=== PATIENT | male | born 1970 | race Caucasian/White ===

== ENCOUNTER 2020-05-29 18:06 | Emergency (ER) | payer SELFPAY ==
[~2020-05-29] VITALS: Ht 180.3 cm; Wt 67.6 kg
[~2020-05-29 18:06] MED LIST: ALPR0.25 PO; SLEEPING PILL
[2020-05-29] MEDS ORDERED: PANTOPRAZOLE IV 40 MG VIAL. IVP ONE (18:30)
[2020-05-29 18:36] LABS: BASO # 0.1 x10^3/uL (0.0-0.2); BASO % 1 % (0-3); EOS # 0.3 x10^3/uL (0.0-0.7); EOS % 5 % (0-3); HEMOGLOBIN 7.4 g/dL (13.0-17.5); LYMPH # 2.5 x10^3/uL (1.0-4.8); LYMPH % 37 % (24-48); MEAN CORPUSCULAR HEMOGLOBIN 27 pg (25-35); MEAN CORPUSCULAR HGB CONC 32 g/dL (31-37); MEAN CORPUSCULAR VOLUME 85 fL (79-100); MONO # 0.7 x10^3/uL (0.0-1.1); MONO % 10 % (0-9); NEUT # 3.2 x10^3uL (1.8-7.7); NEUT % 48 % (31-73); PLATELET COUNT 127 x10^3/uL (140-400); RED BLOOD COUNT 2.71 x10^6/uL (4.30-5.70); RED CELL DISTRIBUTION WIDTH 20.9 % (11.5-14.5); WHITE BLOOD COUNT 6.8 x10^3/uL (4.0-11.0)
[2020-05-29] MEDS ORDERED: IV NORMAL SALINE 1,000ML 1,000 ML IV ONE ×2 (18:45→21:30)
[2020-05-29 18:51] LABS: ALBUMIN/GLOBULIN RATIO 0.6 (1.0-1.7); CALCIUM 8.4 mg/dL (8.5-10.1); CREATININE 1.5 mg/dL (0.7-1.3); GFR 49.7; MAGNESIUM 2.4 mg/dL (1.8-2.4); TOTAL BILIRUBIN 0.4 mg/dL (0.2-1.0); TOTAL PROTEIN 7.9 g/dL (6.4-8.2)
[2020-05-29 18:52] LABS: POTASSIUM 2.8 mmol/L (3.5-5.1)
[2020-05-29 19:00] LABS: ANISOCYTOSIS MOD; POLYCHROMASIA PRESENT
[2020-05-29 19:01] LABS: PLT ESTIMATE DECREASED (ADEQUATE)
[2020-05-29 19:03] LABS: MICROCYTOSIS SLIGHT
[2020-05-29] MEDS ORDERED: POTASSIUM CL 40MEQ IN 0.9%NACL 1,000 ML IV ONE (19:15)
[2020-05-29] MEDS ORDERED: IOHEXOL 300 MG/ML 75 ML VIAL. IV ONE (19:15)
[2020-05-29] MEDS ORDERED: CONTRAST GIVEN. MC PRN (19:30)
--- NOTE | 2020-05-29 19:30 | PHYS DOC ---
Past History Past Medical History: Anemia, GERD Additional Past Medical Histor: ulcer Past Surgical History: Other Alcohol Use: Heavy Drug Use: Other General Adult EDM: Chief Complaint: MECHANICAL FALL HPI: HPI: 49-year-old male past medical history significant for peptic ulcer disease, hiatal hernia, anemia, gerd, cardiac murmur and alcohol abuse, presents to the ED with complaints of dizziness and falling for the past 2 days. Patient states he started "puking blood" yesterday, and he feels very weak. Wang no primary care physician. States he was admitted to [facility] 2 months ago and was told he had 2 stomach ulcers (s/p egd) along with a hiatal hernia, required a blood transfusion at that time. Takes daily iron. Reports his tetanus is up-to-date. Unsure if he has cirrhosis or esophageal varices. On exam complains of bilateral lower abdominal pain and right low back pain. Repeat exam c/o right shoulder and right midaxillary mid-rib pain (&7/8)-initially no pain with palpation. Review of systems: Denies associated fever, chills, cough, sore throat, chest pain or pressure, dyspnea, rash, dysuria, neck stiffness, headache, blurry vision, jaw malocclusion, dysuria, hematuria. Review of Systems: Review of Systems: Constitutional: Denies fever or chills Eyes: Denies change in visual acuity HENT: Denies nasal congestion or sore throat Respiratory: Denies cough or shortness of breath Cardiovascular: Denies chest pain or edema GI: Denies abdominal pain, nausea, vomiting, bloody stools or diarrhea : Denies dysuria Musculoskeletal: Denies back pain or joint pain Integument: Denies rash Neurologic: Denies headache, focal weakness or sensory changes Endocrine: Denies polyuria or polydipsia Lymphatic: Denies swollen glands Psychiatric: Denies depression or anxiety Heart Score: Risk Factors: Risk Factors: DM, Current or recent (<one month) smoker, HTN, HLP, family history of CAD, obesity. Risk Scores: Score 0 - 3: 2.5% MACE over next 6 weeks - Discharge Home Score 4 - 6: 20.3% MACE over next 6 weeks - Admit for Clinical Observation Score 7 - 10: 72.7% MACE over next 6 weeks - Early Invasive Strategies Current Medications: Current Meds: Current Medications Medications (Trade) Dose Ordered Sig/Paulette Start Time Stop Time Status Last Admin Dose Admin Info (Do NOT chart on this entry -- for MONITORING) 1 each PRN DAILY PRN 05/29/20 19:30 05/31/20 19:29 Iohexol (Omnipaque 300 Mg/ml) 75 ml 1X ONCE 05/29/20 19:15 05/29/20 19:16 DC Pantoprazole Sodium (Protonix Vial) 80 mg 1X ONCE 05/29/20 18:30 05/29/20 18:31 DC Potassium Chloride/Sodium Chloride 1,000 ml @ 75 mls/hr 1X ONCE 05/29/20 19:15 05/30/20 08:34 Sodium Chloride 1,000 ml @ 1,000 mls/hr 1X ONCE 05/29/20 18:45 05/29/20 19:44 05/29/20 18:45 1,000 MLS/HR Allergies: Allergies: Allergies Coded Allergies Type Severity Reaction Last Updated Verified No Known Drug Allergies 01/18/15 No Physical Exam: PE: Constitutional: Unkept appearance, no acute distress, non-toxic appearance, alcohol on breath HENT: nasal bridge laceration, gross blood both nares, no septal hematoma, right periorbital abrasions, dried blood in mouth, oropharynx dry, no oral exudates, Eyes: PERRLA, EOMI, conjunctiva normal, no discharge. [] Neck: Normal range of motion, no midline tenderness, supple, no stridor. [] Cardiovascular:Heart rate regular rhythm, no murmur [] Lungs & Thorax: Bilateral breath sounds clear to auscultation [] Abdomen: Bowel sounds normal, soft, no reproducible tenderness, no masses, no pulsatile masses. [] Skin: Warm, dry, no erythema, no rash. [] Back: No tenderness, no CVA tenderness. [] Extremities: No tenderness, no cyanosis, no clubbing, ROM intact, no edema, abrasion to right shoulder Neurologic: Alert and oriented X 3, normal motor function, normal sensory function, no focal deficits noted. [] Psychologic: Affect normal, judgement normal, mood normal. [] Current Patient Data: Labs: Laboratory Tests Test 05/29/20 18:11 05/29/20 18:18 Glucose (Fingerstick) 112 mg/dL (70-99) H White Blood Count 6.8 x10^3/uL (4.0-11.0) Red Blood Count 2.71 x10^6/uL (4.30-5.70) L Hemoglobin 7.4 g/dL (13.0-17.5) L Hematocrit 23.0 % (39.0-53.0) L Mean Corpuscular Volume 85 fL (79-100) Mean Corpuscular Hemoglobin 27 pg (25-35) Mean Corpuscular Hemoglobin Concent 32 g/dL (31-37) Red Cell Distribution Width 20.9 % (11.5-14.5) H Platelet Count 127 x10^3/uL (140-400) L Neutrophils (%) (Auto) 48 % (31-73) Lymphocytes (%) (Auto) 37 % (24-48) Monocytes (%) (Auto) 10 % (0-9) H Eosinophils (%) (Auto) 5 % (0-3) H Basophils (%) (Auto) 1 % (0-3) Neutrophils # (Auto) 3.2 x10^3uL (1.8-7.7) Lymphocytes # (Auto) 2.5 x10^3/uL (1.0-4.8) Monocytes # (Auto) 0.7 x10^3/uL (0.0-1.1) Eosinophils # (Auto) 0.3 x10^3/uL (0.0-0.7) Basophils # (Auto) 0.1 x10^3/uL (0.0-0.2) Platelet Estimate Decreased (ADEQUATE) Large Platelets Present Polychromasia Present Anisocytosis Mod Microcytosis Slight Prothrombin Time 10.7 SEC (9.4-11.4) Prothrombin Time INR 1.0 (0.9-1.1) Sodium Level 138 mmol/L (136-145) Potassium Level 2.8 mmol/L (3.5-5.1) *L Chloride Level 98 mmol/L (98-107) Carbon Dioxide Level 27 mmol/L (21-32) Anion Gap 13 (6-14) Blood Urea Nitrogen 25 mg/dL (8-26) Creatinine 1.5 mg/dL (0.7-1.3) H Estimated GFR (Cockcroft-Gault) 49.7 BUN/Creatinine Ratio 17 (6-20) Glucose Level 103 mg/dL (70-99) H Calcium Level 8.4 mg/dL (8.5-10.1) L Magnesium Level 2.4 mg/dL (1.8-2.4) Total Bilirubin 0.4 mg/dL (0.2-1.0) Aspartate Amino Transferase (AST) 33 U/L (15-37) Alanine Aminotransferase (ALT) 16 U/L (16-63) Alkaline Phosphatase 122 U/L (46-116) H Total Protein 7.9 g/dL (6.4-8.2) Albumin 3.0 g/dL (3.4-5.0) L Albumin/Globulin Ratio 0.6 (1.0-1.7) L Lipase 211 U/L (73-393) Ethyl Alcohol Level 185 mg/dL (0-10) H Vital Signs: Vital Signs Date Time Temp Pulse Resp B/P (MAP) Pulse Ox O2 Delivery O2 Flow Rate FiO2 05/29/20 18:06 87 18 99/52 (68) 96 Room Air EKG: EKG: Normal sinus rhythm 86 bpm, no axis deviation, QTC 516, no T wave inversions, no ST elevations or ST depressions Radiology/Procedures: Radiology/Procedures: IMAGING REPORT Signed PATIENT: LEE LOUIS ACCOUNT: [id number] : 1970 LOCATION: ER AGE: 49 SEX: M EXAM STATUS: REG ER ORD. PHYSICIAN: MADISON VARGAS DO REASON: fall PROCEDURE: CHEST AP ONLY CHEST AP ONLY History: Reason: fall / Spl. Instructions: / History: . Pain. Comparison: January 18, 2015 Findings: No consolidation or pleural effusion. Unchanged heart size. No pneumothorax. Mild linear left basilar atelectasis or scarring. Rightward curvature of the thoracic spine. Irregularity of the left distal clavicle. Chronic left-sided rib fracture. Impression: 1. No acute cardiopulmonary process. 2. Irregularity of the left distal clavicle, may relate to prior trauma. Recommend correlation with point tenderness to evaluate acuity. Dedicated imaging can also further evaluate. Electronically signed by: Jeremy Rodgers DO (05/29/2020 8:02 PM) [facility] DICTATED AND SIGNED BY: JEREMY RODGERS DO DATE: 05/29/202001 CC: PCPANNE; MADISON VARGAS DO; MINDI BERMAN DO ~ IMAGING REPORT Signed PATIENT: LEE LOUIS ACCOUNT: [id number] : 1970 LOCATION: ER AGE: 49 SEX: M EXAM STATUS: REG ER ORD. PHYSICIAN: MADISON VARGAS DO REASON: fall PROCEDURE: CT HEAD AND CERVICAL SPINE WO CT HEAD AND CERVICAL SPINE WO History: Reason: fall / Spl. Instructions: / History: . Pain. Comparison: January 18, 2015 Technique: Noncontrast CT imaging was performed of the head and cervical spine. Coronal and sagittal reconstructions were performed. Exposure: One or more of the following individualized dose reduction techniques were utilized for this examination: 1. Automated exposure control 2. Adjustment of the mA and/or kV according to patient size 3. Use of iterative reconstruction technique. Findings: Head CT: No intracranial hemorrhage. No mass effect. No hydrocephalus. Moderate brain parenchymal volume loss for age. Mild foci of decreased attenuation within the hemispheric white matter, most often due to chronic microvascular ischemia. Imaged orbits are unremarkable. Imaged paranasal sinuses are clear. Bilateral mastoid effusions. No acute calvarial fracture. Cervical spine CT: Motion degraded evaluation. Reversal normal cervical lordosis. No definite fracture. Chronic T1 mild anterior compression deformity. Mild multilevel degenerative disc changes most prominent C4-C5 and C5-C6. No high-grade canal or neuroforaminal narrowing. Pulmonary emphysema. Impression: Head CT: 1. No acute intracranial abnormality. 2. Moderate brain parenchymal loss for age. Cervical spine CT: 1. Motion degraded examination. No definite acute fracture or subluxation of the cervical spine. If persistent clinical concern, recommend follow-up. Electronically signed by: Jeremy Rodgers DO (05/29/2020 8:10 PM) [facility] DICTATED AND SIGNED BY: JEREMY RODGERS DO DATE: 05/29/202009 CC: ANNE HART; MADISON VARGAS DO; MINDI BERMAN DO ~ IMAGING REPORT Signed PATIENT: LEE LOUIS ACCOUNT: [id number] : 1970 LOCATION: ER AGE: 49 SEX: M EXAM STATUS: REG ER ORD. PHYSICIAN: MINDI BERMAN DO REASON: lower abd pain and right lbp, OMNI 300, 60ml PROCEDURE: CT ABD PELV W/ IV CONTRST ONLY Exam: CT of abdomen and pelvis with contrast INDICATION: Lower abdominal pain and right lower back pain TECHNIQUE: Sequential axial images through the abdomen and pelvis obtained following the administration of 60 mL of Omni 300 IV contrast. Sagittal and coronal reformatted images were reconstructed from the axial data and reviewed. Comparisons: 01/18/2015 FINDINGS: Heart size is normal. No pericardial effusion. Strandy opacities at dependent portion lungs likely representing atelectasis. No pleural effusion. Liver, spleen, gallbladder and adrenals are unremarkable. Mild fat stranding surrounding the pancreatic head. No pancreatic ductal dilatation. No perinephric inflammation or hydronephrosis. No renal or ureteral calculi are identified. Bladder is partially distended and not well evaluated. Prostate is not enlarged. Large and small bowel are unremarkable. Appendix is normal. No free abdominal air or fluid. No obstruction. Abdominal aorta has a normal course and caliber. Abdominal vasculature is patent. No enlarged abdominal lymph nodes are identified. No suspicious osseous lesions or acute fractures. IMPRESSION: Mild fat stranding surrounding the pancreatic head may relate to mild pancreatitis. Correlate with lipase. Exposure: One or more of the following in the visualized dose reduction techniques were utilized for this examination: 1. Automated exposure control 2. Adjustment of the MA and/or KV according to patient size 3. Use of iterative of reconstructive technique Electronically signed by: Олег Dickens MD (05/29/2020 8:09 PM) [id number] DICTATED AND SIGNED BY: ОЛЕГ DICKENS MD DATE: 05/29/202008 CC: PCP,NO; MINDI BERMAN DO ~ IMAGING REPORT Signed PATIENT: LEE LOUIS ACCOUNT: [id number] : 1970 LOCATION: ER AGE: 49 SEX: M EXAM STATUS: REG ER ORD. PHYSICIAN: MINDI BERMAN DO REASON: FALL PROCEDURE: SHOULDER 2+V RIGHT RIBS RIGHT, SHOULDER 2+V RIGHT History: Reason: RIGHT AXILLARY RIB PAIN / Spl. Instructions: / History: Technique: 4 views of the right ribs and 3 views of the right shoulder. Comparison: None. Findings: Several chronic right rib fractures. No acute displaced rib fractures. Normal alignment of the right glenohumeral and acromioclavicular joints. No fracture. Rightward curvature of the thoracic spine. Impression: 1. No acute osseous abnormality. Electronically signed by: Jeremy Rodgers DO (05/29/2020 9:51 PM) [facility] DICTATED AND SIGNED BY: JEREMY RODGERS DO DATE: 05/29/202150 CC: PCP,ANNE; MINDI BERMAN DO ~ Impressions: Concern for hematemesis/upper GI bleed (ddx-lee ann delcid?, no free air on cxr) with microcytic anemia, acute kidney injury, in the setting of falls/facial trauma, in an intoxicated male. Reports last hematemesis was 4 AM this morning, no active hematemesis in ED. Patient started on IV fluids and PPI bolus/infusion. CT imaging concerning for possible pancreatitis, lipase is within normal limits. Patient also has hypokalemia, replacement started in the ED. Lactic acid of 3.2, patient afebrile with a white count of 6.8. Patient agrees with plan for transfer [facility] for possible GI consultation if needed/pts' presentation worsens. Life threatening process considered. Pt stablized and agrees with plan for transfer. Differential includes aortic dissection, aortic aneurysm, acute coronary syndrome, surgical abdomen (appendicitis, cholecystitis, ischemic bowel, strangulated hernia, etc), bowel obstruction or volvulus, bladder outlet ob struction, inflammatory bowel disease, peptic ulcer disease, pancreatitis, esophageal varices, sepsis, diverticular disease, ureterolithiasis, nephrolithiasis, Critical Care: Authorized and Performed by: Mindi Berman DO Total critical care time: approximately 45 minutes Due to a high probability of clinically significant, life threatening deterioration, the patient required my highest level of preparedness to intervene emergently and I personally spent this critical care time directly and personally managing the patient. This critical care time included obtaining a history; examining the patient; pulse oximetry; ventilator management if necessary; ordering and review of studies; arranging urgent treatment with development of a management plan; evaluation of patient's response to treatment; frequent reassessment; discussion with patient/family; and, discussions with other providers. This critical care time was performed to assess and manage the high probability of imminent, life-threatening deterioration that could result in multi-organ failure. It was exclusive of separately billable procedures and treating other patients and teaching time. Please see MDM section and the rest of the note for further information on patient assessment and treatment. Course & Med Decision Making: Course & Med Decision Making Pertinent Labs and Imaging studies reviewed. (See chart for details) [] Dragon Disclaimer: Dragon Disclaimer: This electronic medical record was generated, in whole or in part, using a voice recognition dictation system. Departure Departure: Impression: Primary Impression: UGIB (upper gastrointestinal bleed) Additional Impressions: Alcohol intoxication Hypokalemia Fall Abrasion of face JODY (acute kidney injury) Microcytic anemia Disposition: ADMITTED INPATIENT Admitting Physician: Other (Dr. Morfin, [facility]) Condition: GUARDED Referrals: PCP,NO (PCP) Justification of Admission: Justification of Admission: Justification of Admission Dx: Yes Comments: hematemesis, upper gi bleed MINDI BERMAN DO May 29, 2020 19:30
--- NOTE | 2020-05-29 20:05 | RAD ---
CHEST AP ONLY History: Reason: fall / Spl. Instructions: / History: . Pain. Comparison: January 18, 2015 Findings: No consolidation or pleural effusion. Unchanged heart size. No pneumothorax. Mild linear left basilar atelectasis or scarring. Rightward curvature of the thoracic spine. Irregularity of the left distal clavicle. Chronic left-sided rib fracture. Impression: 1. No acute cardiopulmonary process. 2. Irregularity of the left distal clavicle, may relate to prior trauma. Recommend correlation with point tenderness to evaluate acuity. Dedicated imaging can also further evaluate. Electronically signed by: Jeremy Rodgers DO (05/29/2020 8:02 PM) [facility]
--- NOTE | 2020-05-29 20:12 | RAD ---
Exam: CT of abdomen and pelvis with contrast INDICATION: Lower abdominal pain and right lower back pain TECHNIQUE: Sequential axial images through the abdomen and pelvis obtained following the administration of 60 mL of Omni 300 IV contrast. Sagittal and coronal reformatted images were reconstructed from the axial data and reviewed. Comparisons: 01/18/2015 FINDINGS: Heart size is normal. No pericardial effusion. Strandy opacities at dependent portion lungs likely representing atelectasis. No pleural effusion. Liver, spleen, gallbladder and adrenals are unremarkable. Mild fat stranding surrounding the pancreatic head. No pancreatic ductal dilatation. No perinephric inflammation or hydronephrosis. No renal or ureteral calculi are identified. Bladder is partially distended and not well evaluated. Prostate is not enlarged. Large and small bowel are unremarkable. Appendix is normal. No free abdominal air or fluid. No obstruction. Abdominal aorta has a normal course and caliber. Abdominal vasculature is patent. No enlarged abdominal lymph nodes are identified. No suspicious osseous lesions or acute fractures. IMPRESSION: Mild fat stranding surrounding the pancreatic head may relate to mild pancreatitis. Correlate with lipase. Exposure: One or more of the following in the visualized dose reduction techniques were utilized for this examination: 1. Automated exposure control 2. Adjustment of the MA and/or KV according to patient size 3. Use of iterative of reconstructive technique Electronically signed by: Олег Santos MD (05/29/2020 8:09 PM) [id number]
--- NOTE | 2020-05-29 20:12 | RAD ---
CT HEAD AND CERVICAL SPINE WO History: Reason: fall / Spl. Instructions: / History: . Pain. Comparison: January 18, 2015 Technique: Noncontrast CT imaging was performed of the head and cervical spine. Coronal and sagittal reconstructions were performed. Exposure: One or more of the following individualized dose reduction techniques were utilized for this examination: 1. Automated exposure control 2. Adjustment of the mA and/or kV according to patient size 3. Use of iterative reconstruction technique. Findings: Head CT: No intracranial hemorrhage. No mass effect. No hydrocephalus. Moderate brain parenchymal volume loss for age. Mild foci of decreased attenuation within the hemispheric white matter, most often due to chronic microvascular ischemia. Imaged orbits are unremarkable. Imaged paranasal sinuses are clear. Bilateral mastoid effusions. No acute calvarial fracture. Cervical spine CT: Motion degraded evaluation. Reversal normal cervical lordosis. No definite fracture. Chronic T1 mild anterior compression deformity. Mild multilevel degenerative disc changes most prominent C4-C5 and C5-C6. No high-grade canal or neuroforaminal narrowing. Pulmonary emphysema. Impression: Head CT: 1. No acute intracranial abnormality. 2. Moderate brain parenchymal loss for age. Cervical spine CT: 1. Motion degraded examination. No definite acute fracture or subluxation of the cervical spine. If persistent clinical concern, recommend follow-up. Electronically signed by: Jeremy Rodgers DO (05/29/2020 8:10 PM) [facility]
--- NOTE | 2020-05-29 20:55 | EKG ---
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
[2020-05-29] MEDS ORDERED: PANTOPRAZOLE IV 80 MG in IV NORMAL SALINE 100ML 100 ML IV SCH (21:30)
[2020-05-29] MEDS ORDERED: PANTOPRAZOLE IV 40 MG VIAL. ONE (21:49)
[2020-05-29] MEDS ORDERED: IV NORMAL SALINE 100ML 100 ML ONE (21:50)
--- NOTE | 2020-05-29 21:54 | RAD ---
RIBS RIGHT, SHOULDER 2+V RIGHT History: Reason: RIGHT AXILLARY RIB PAIN / Spl. Instructions: / History: Technique: 4 views of the right ribs and 3 views of the right shoulder. Comparison: None. Findings: Several chronic right rib fractures. No acute displaced rib fractures. Normal alignment of the right glenohumeral and acromioclavicular joints. No fracture. Rightward curvature of the thoracic spine. Impression: 1. No acute osseous abnormality. Electronically signed by: Jeremy Rodgers DO (05/29/2020 9:51 PM) [facility]
[2020-05-29] MEDS ORDERED: MORPHINE SULFATE 4 MG/ML DISP.SYRIN. IV ONE (22:00)
[2020-05-30] VITALS: BP 132/73
== END 2020-05-30 00:21 | disposition other institution (70) ==
LOC: ER 18:06
DX: S01.21XA Laceration without foreign body of nose, initial encounter (principal); S40.211D Abrasion of right shoulder, subsequent encounter; K92.2 Gastrointestinal hemorrhage, unspecified; F10.229 Alcohol dependence with intoxication, unspecified; E87.6 Hypokalemia; N17.9 Acute kidney failure, unspecified; D50.9 Iron deficiency anemia, unspecified; K21.9 Gastro-esophageal reflux disease without esophagitis; Z86.2 Personal history of diseases of the blood and blood-forming organs and certain disorders involving the immune mechanism; Z87.11 Personal history of peptic ulcer disease; Y90.6 Blood alcohol level of 120-199 mg/100 ml; W18.39XA Other fall on same level, initial encounter; Y93.89 Activity, other specified; Y92.89 Other specified places as the place of occurrence of the external cause; Y99.8 Other external cause status
CPT/HCPCS: 36415; 70450; 71045; 71100; 72125; 73030; 74177; 80053; 82947; 83605; 83690; 83735; 85025; 85610; 86850; 86900; 86901; 93005; 96361; 96365; 96366; 96368; 96375; 99291; C9113; G0480; J2270; J3010; J7030; Q9967

== ENCOUNTER 2020-08-03 16:47 | Emergency (ER) | payer SELFPAY ==
[~2020-08-03] VITALS: Ht 180.3 cm; Wt 72.7 kg
--- NOTE | 2020-08-03 17:13 | PHYS DOC ---
Past History Past Medical History: Anemia, Anxiety, Bipolar, Depression, GERD Additional Past Medical Histor: ulcer (LEE SOLANO DO) Past Surgical History: No Surgical History (LEE SOLANO DO) Smoking: Cigarettes Alcohol Use: Heavy Drug Use: None (LEE SOLANO DO) General Adult EDM: Chief Complaint: SUICIDAL IDEATION HPI: HPI: Patient is a 49-year-old male who presents to the emergency department with suicidal ideation. He states that he "has nothing to live for", and states that he has multiple plans to hurt himself including knives, rope, jumping off a bridge. States he has attempted to hurt himself in the past, and recently was discharged after a 3-week stay at an inpatient behavioral health clinic at [facility] He denies any hallucinations, or drug use. Reports he drank a "few beers today". States that if he were discharged home, he would try to kill himself. He says that he wants to be admitted to a inpatient behavioral health unit in order to seek treatment. He is also complaining of left ankle pain and lower back pain that resulted after he fell down a few steps today. Denies head trauma. Also complains of a left-sided migraine. (LEE SOLANO DO) Review of Systems: Review of Systems: Constitutional: Denies fever or chills Eyes: Denies redness or eye pain HENT: Denies nasal congestion or sore throat Respiratory: Denies cough or shortness of breath Cardiovascular: Denies chest pain or palpitations GI: Denies abdominal pain, nausea, or vomiting : Denies dysuria or hematuria Musculoskeletal: Reports right sided back pain and right ankle pain Integument: Denies rash or skin lesions Neurologic: Reports right sided migraine headache, denies focal weakness or sensory changes Complete systems were reviewed and found to be within normal limits, except as documented in this note. (LEE SOLANO DO) Allergies: Allergies: Allergies Coded Allergies Type Severity Reaction Last Updated Verified No Known Drug Allergies 01/18/15 No (LEE SOLANO DO) Physical Exam: PE: Constitutional: Well developed, well nourished, no acute distress, non-toxic appearance HENT: Normocephalic, atraumatic, head nontender to palpation Eyes: PERRL, EOMI, conjunctiva normal, no discharge Neck: Normal range of motion, no midline tenderness, supple Lungs & Thorax: No respiratory distress, equal chest rise and fall Abdomen: Soft, no tenderness Skin: Warm, dry, no erythema, no rash Back: No tenderness, no CVA tenderness Extremities: Left ankle tenderness around the forefoot, mild swelling and ecchymosis noted on medial aspect of ankle, Range of motion limited due to pain Neurologic: Alert and oriented X 3, no hallucinations, normal motor function, normal sensory function, no focal deficits noted Psychologic: Flattened affect, depressed mood and suicidal ideation (LEE SOLANO DO) EKG: EKG: [] (LEE SOLANO DO) Radiology/Procedures: Radiology/Procedures: PROCEDURE: ANKLE LEFT 3V ANKLE LEFT 3V History: Reason: FALL TODAY, PAIN / Spl. Instructions: / History: Technique: 3 views left ankle. Comparison: None. Findings: Deformity of the talus and calcaneus with increased sclerosis and irregularity. Ankle degenerative changes. No definite acute fracture. Ankle soft tissue swelling. Impression: 1. No definite acute osseous abnormality. If persistent clinical concern, CT or MRI can better evaluate. 2. Deformity of the talus and calcaneus with irregularity and increased sclerosis. Findings may relate to Charcot arthropathy. Electronically signed by: Jeremy Rodgers DO (08/03/2020 5:54 PM) [facility] (LEE SOLANO DO) Course & Med Decision Making: Course & Med Decision Making Pertinent Labs and Imaging studies reviewed. (See chart for details) Patient is brought to the emergency department via EMS for suicidal ideation. He has a history of anxiety, depression, bipolar disorder and prior suicidal ideation requiring inpatient psychiatric admission. He states that he has a plan to hurt himself that includes knives, rope, and/or jumping off a bridge. He states that he wants to seek treatment in the form of an inpatient behavioral health facility. X-ray of left ankle to evaluate for acute fracture. XR with degenerative changes. Labs obtained and partially pending. 1800- sign out given to Dr. Cloud for further evaluation and final disposition. Discussed current findings and plan with patient, who acknowledges understanding and agreement. (LEE SOLANO DO) Course & Med Decision Making Screened and deemed appropriate for inpatient, pending placement (ANNA CLOUD MD) Dragon Disclaimer: Dragon Disclaimer: This electronic medical record was generated, in whole or in part, using a voice recognition dictation system. (LEE SOLANO DO) Departure Departure: Impression: Primary Impression: Suicidal ideation Additional Impression: Ankle pain, left Qualified Codes: M25.572 - Pain in left ankle and joints of left foot Referrals: PCP,NO (PCP) LEE SOLANO DO Aug 03, 2020 17:13 ANNA CLOUD MD Aug 03, 2020 22:31
[2020-08-03] MEDS ORDERED: IBUPROFEN 600 MG TABLET. PO ONE (17:30)
[2020-08-03 17:50] LABS: BASO # 0.2 x10^3/uL (0.0-0.2); BASO % 2 % (0-3); EOS # 0.6 x10^3/uL (0.0-0.7); EOS % 6 % (0-3); HEMATOCRIT 25.6 % (39.0-53.0); HEMOGLOBIN 8.3 g/dL (13.0-17.5); LYMPH # 3.7 x10^3/uL (1.0-4.8); LYMPH % 37 % (24-48); MEAN CORPUSCULAR HEMOGLOBIN 27 pg (25-35); MEAN CORPUSCULAR HGB CONC 32 g/dL (31-37); MEAN CORPUSCULAR VOLUME 85 fL (79-100); MONO # 0.8 x10^3/uL (0.0-1.1); MONO % 8 % (0-9); NEUT # 4.6 x10^3uL (1.8-7.7); NEUT % 47 % (31-73); PLATELET COUNT 490 x10^3/uL (140-400); RED BLOOD COUNT 3.02 x10^6/uL (4.30-5.70); RED CELL DISTRIBUTION WIDTH 22.3 % (11.5-14.5); WHITE BLOOD COUNT 9.9 x10^3/uL (4.0-11.0)
--- NOTE | 2020-08-03 17:57 | RAD ---
ANKLE LEFT 3V History: Reason: FALL TODAY, PAIN / Spl. Instructions: / History: Technique: 3 views left ankle. Comparison: None. Findings: Deformity of the talus and calcaneus with increased sclerosis and irregularity. Ankle degenerative changes. No definite acute fracture. Ankle soft tissue swelling. Impression: 1. No definite acute osseous abnormality. If persistent clinical concern, CT or MRI can better evaluate. 2. Deformity of the talus and calcaneus with irregularity and increased sclerosis. Findings may relate to Charcot arthropathy. Electronically signed by: Jeremy Rodgers DO (08/03/2020 5:54 PM) [facility]
[2020-08-03 18:04] LABS: ALBUMIN 3.2 g/dL (3.4-5.0); ALBUMIN/GLOBULIN RATIO 0.7 (1.0-1.7); CALCIUM 8.7 mg/dL (8.5-10.1); CREATININE 1.1 mg/dL (0.7-1.3); GFR 71.1; POTASSIUM 3.7 mmol/L (3.5-5.1); TOTAL BILIRUBIN 0.3 mg/dL (0.2-1.0); TOTAL PROTEIN 7.9 g/dL (6.4-8.2)
[2020-08-03 18:08] LABS: ETHANOL 203 mg/dL (0-10); SALIC 3.1 mg/dL (2.8-20.0)
[2020-08-03 18:09] LABS: ACETAMIN < 2.0 mcg/mL (10-30)
[2020-08-03] MEDS ORDERED: ACETAMINOPHEN 500 MG TABLET PO ONE (18:30)
[2020-08-03 18:40] LABS: BARBITURATES NEG (NEG); BENZODIAZEPINES NEG (NEG); CANNABINOIDS NEG (NEG); COCAINE NEG (NEG); METHADONE NEG (NEG); OPIATES NEG (NEG); PHENCYCLIDINE NEG (NEG)
[2020-08-03 18:44] LABS: AMPHETAMINE/METHAMPHETAMINE NEG (NEG)
[2020-08-03 18:47] LABS: BILIRUBIN,URINE NEG (NEG); CLARITY,URINE CLEAR; COLOR,URINE YELLOW; GLUCOSE,URINE NEG (NEG); NITRITE,URINE NEG (NEG); RBC,URINE 0 /HPF (0-2); UROBILINOGEN,URINE 0.2 mg/dL (0.2 mg/dL)
[2020-08-03 18:48] LABS: BACTERIA,URINE 0 /HPF (0-FEW); WBC,URINE RARE /HPF (0-4)
[2020-08-03] MEDS ORDERED: traMADol 50 MG TABLET PO ONE (20:45)
--- NOTE | 2020-08-04 06:43 | EKG ---
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
[2020-08-04] MEDS ORDERED: traMADol 50 MG TABLET ONE (09:08)
[2020-08-04] MEDS ORDERED: traMADol 50 MG TABLET PO ONE ×2 (09:15→15:30)
[2020-08-04 14:46] VITALS: BP 144/84
== END 2020-08-04 15:30 ==
LOC: ER 16:47
DX: R45.851 Suicidal ideations (principal); M25.572 Pain in left ankle and joints of left foot; M54.5 Low back pain; K21.9 Gastro-esophageal reflux disease without esophagitis; F41.9 Anxiety disorder, unspecified; F31.9 Bipolar disorder, unspecified; F17.210 Nicotine dependence, cigarettes, uncomplicated; F10.20 Alcohol dependence, uncomplicated; G43.909 Migraine, unspecified, not intractable, without status migrainosus; Z20.828 Contact with and (suspected) exposure to other viral communicable diseases; Z86.2 Personal history of diseases of the blood and blood-forming organs and certain disorders involving the immune mechanism; Y90.7 Blood alcohol level of 200-239 mg/100 ml
CPT/HCPCS: 36415; 73610; 80053; 80307; 80329; 81001; 83735; 85025; 87426; 93005; 99285; C9803; G0480; U0003

== ENCOUNTER 2020-08-28 16:36 | Emergency (ER) | payer SELFPAY ==
[~2020-08-28] VITALS: Ht 180.3 cm; Wt 70.0 kg
[2020-08-28] MEDS ORDERED: IV NORMAL SALINE 1,000ML 1,000 ML IV ONE (16:45)
[2020-08-28] MEDS ORDERED: ONDANSETRON PF 4 MG/2 ML VIAL. IVP ONE (16:45)
--- NOTE | 2020-08-28 17:14 | PHYS DOC ---
Past History Past Medical History: Anemia, Anxiety, Bipolar, Depression, GERD Additional Past Medical Histor: ulcer (SHAWANDA NICHOLAS DO) Past Medical History: Anxiety, Bipolar, Depression, GERD, Schizophrenia (DERIAN MCGRAW MD) Past Surgical History: No Surgical History (SHAWANDA NICHOLAS DO) Smoking: Cigarettes Alcohol Use: Heavy Drug Use: None (SHAWANDA NICHOLAS DO) Smoking: Cigarettes Alcohol Use: Heavy (DERIAN MCGRAW MD) General Adult EDM: Chief Complaint: MULTIPLE COMPLAINTS HPI: HPI: 49-year-old male presents via EMS with 2 complaints. He has had vomiting and diarrhea for a month and he is feeling suicidal. He states that he is vomiting nearly every day and having diarrhea for the past month. He states that he cannot keep any liquids or solids down. He tells me try to drink a beer earlier today and vomited it back up. He does not describe any specific abdominal pain. He tells me that he is depressed and tired of living. He has been thinking about suicide. He has had more than one specific plan. He thought about jumping off a bridge and he thought about using a gun. He denies fever or chills. He is supposed to be on psychiatric medications but does not think he is able to keep them down because of his vomiting. (SHAWANDA NICHOLAS DO) Review of Systems: Review of Systems: Constitutional: Denies fever or chills Eyes: Denies change in visual acuity HENT: Denies nasal congestion or sore throat Respiratory: Denies cough or shortness of breath Cardiovascular: Denies chest pain or edema GI: Nausea, vomiting, diarrhea. : Denies dysuria Musculoskeletal: Back pain, chronic at baseline. Integument: Denies rash Neurologic: Denies headache, focal weakness or sensory changes Endocrine: Denies polyuria or polydipsia Lymphatic: Denies swollen glands Psychiatric: Denies depression or anxiety (SHAWANDA NICHOLAS DO) Current Medications: Current Meds: Current Medications Medications (Trade) Dose Ordered Sig/Paulette Start Time Stop Time Status Last Admin Dose Admin Ondansetron HCl (Zofran) 4 mg 1X ONCE 08/28/20 16:45 08/28/20 16:46 DC Sodium Chloride 1,000 ml @ 1,000 mls/hr 1X ONCE 08/28/20 16:45 08/28/20 17:44 (SHAWANDA NICHOLAS DO) Allergies: Allergies: Allergies Coded Allergies Type Severity Reaction Last Updated Verified No Known Drug Allergies 01/18/15 No (SHAWANDA NICHOLAS DO) Physical Exam: PE: Constitutional: Well developed, well nourished, no acute distress, non-toxic appearance. [] HENT: Normocephalic, atraumatic, bilateral external ears normal, oropharynx moist, no oral exudates, nose normal. [] Eyes: PERRLA, EOMI, conjunctiva normal, no discharge. [] Neck: Normal range of motion, no tenderness, supple, no stridor. [] Cardiovascular: Heart rate regular rhythm, no murmur [] Lungs & Thorax: Bilateral breath sounds clear to auscultation [] Abdomen: Bowel sounds present, soft, no tenderness, no masses, no pulsatile masses. [] Skin: Warm, dry, no erythema, no rash. [] Back: No tenderness, no CVA tenderness. [] Extremities: No tenderness, no cyanosis, no clubbing, ROM intact, no edema. [] Neurologic: Alert and oriented X 3, normal motor function, normal sensory function, no focal deficits noted. [] Psychologic: Affect normal, judgement normal, mood depressed. [] (SHAWANDA NICHOLAS DO) Current Patient Data: Vital Signs: Vital Signs Date Time Temp Pulse Resp B/P (MAP) Pulse Ox O2 Delivery O2 Flow Rate FiO2 08/28/20 16:36 98.2 97 20 158/95 (116) 95 Room Air (SHAWANDA NICHOLAS DO) EKG: EKG: [] (SHAWANDA NICHOLAS DO) EKG: My interpretation EKG shows sinus rhythm at 86 bpm. No acute morphology. (DERIAN MCGRAW MD) Radiology/Procedures: Radiology/Procedures: [] (SHAWANDA NICHOLAS DO) Radiology/Procedures: [address] [address] IMAGING REPORT Signed PATIENT: LEE LOUIS ACCOUNT: [id number] : 1970 LOCATION: ER AGE: 49 SEX: M EXAM STATUS: REG ER ORD. PHYSICIAN: DERIAN MCGRAW MD REASON: abdomen pain, OMNI 300, 75ml & OMNI 240, 30ml PROCEDURE: CT ABD PELV W/ORAL&IV CONTRAST Exam: CT of abdomen and pelvis with contrast INDICATION: Abdominal pain TECHNIQUE: Sequential axial images through the abdomen and pelvis obtained following the administration of 75 mL of Omni 300 IV contrast. Sagittal and coronal reformatted images were reconstructed from the axial data and reviewed. Comparisons: None FINDINGS: Heart size is normal. No pericardial effusion. Visualized lung bases are clear. No pleural effusion. Mild diffuse hepatic steatosis. Gallbladder, spleen, pancreas and adrenals are unremarkable. Kidneys demonstrate symmetric enhancement. No perinephric inflammation or hydronephrosis. No renal or ureteral calculi are identified. Bladder is decompressed not well evaluated. Prostate is not enlarged. Large and small bowel are unremarkable. Appendix is nonidentified. No free intra-abdominal air or fluid. No obstruction. Abdominal aorta has a normal course and caliber. Abdominal vasculature is patent. No enlarged intra-abdominal lymph nodes are identified. No suspicious osseous lesions or acute fractures. IMPRESSION: No acute process identified within the abdomen or pelvis. Exposure: One or more of the following in the visualized dose reduction techniques were utilized for this examination: 1. Automated exposure control 2. Adjustment of the MA and/or KV according to patient size 3. Use of iterative of reconstructive technique Electronically signed by: Олег Dickens MD (08/28/2020 9:21 PM) [id number] DICTATED AND SIGNED BY: ОЛЕГ DICKENS MD DATE: 08/28/202120 CC: DERIAN MCGRAW MD; PCP,NO ~ [address] [address] IMAGING REPORT Signed PATIENT: LEE LOUIS ACCOUNT: [id number] : 1970 LOCATION: ER AGE: 49 SEX: M EXAM STATUS: REG ER ORD. PHYSICIAN: SHAWANDA NICHOLAS DO REASON: fecal incontinance PROCEDURE: KUB KUB History: Reason: fecal incontinance / Spl. Instructions: / History: Technique: Supine views of the abdomen. Comparison: CT May 29, 2020 Findings: Mildly dilated air-filled loops of small bowel within the left mid abdomen. Air and stool scattered throughout the imaged colon. Mild colonic stool burden distally. Leftward curvature of the lumbar spine with multilevel spondylosis. Imaged lung bases are unremarkable. Left proximal femur internal fixation. Impression: 1. Mildly dilated air-filled loops of small bowel within the left mid abdomen, may represent ileus or enteritis. Recommend follow-up to exclude developing obstruction. Alternatively, CT can further evaluate. Electronically signed by: Jeremy Martin DO (08/28/2020 5:38 PM) [facility] DICTATED AND SIGNED BY: JEREMY MARTIN DO DATE: 08/28/20 [id number] CC: SHAWANDA NICHOLAS DO; PCP,NO ~ (DERIAN MCGRAW MD) Heart Score: Risk Factors: Risk Factors: DM, Current or recent (<one month) smoker, HTN, HLP, family history of CAD, obesity. Risk Scores: Score 0 - 3: 2.5% MACE over next 6 weeks - Discharge Home Score 4 - 6: 20.3% MACE over next 6 weeks - Admit for Clinical Observation Score 7 - 10: 72.7% MACE over next 6 weeks - Early Invasive Strategies (SHAWANDA NICHOLAS DO) Course & Med Decision Making: Course & Med Decision Making Pertinent Labs and Imaging studies reviewed. (See chart for details) The patient's work-up is pending. I am signing him out to Dr. Mcgraw at 1800. [] (SHAWANDA NICHOLAS DO) Course & Med Decision Making See Dr. Nicholas chart for details. Pt. asleep entire shift until Psych screen at 0130 hrs. ( Pt. stated he was to sick to do the screen) See Psych assessment. Advised have pt.re-screened at Shift change. Pt. Went back to sleep once Tele.Psych signed off. Pt. Still asleep at 0530 hrs. Has not had a stool, or vomited since last time attempt to complete the psych.eval. Re-attempt of Tele. Psych to complete an assessment. 05:30 Patient apparently at [facility], -and given prescriptions on August 09 for Fluoxetine 20 mg x 3 daily Trazodone 100 mg at HS daily Gabapentin [address] 40 mg 1 bid Olanzapine 10 mg at HS [id number] qid prn Folic Acid 1 mg daily Request for records sent to [facility]. Impression: 1. Complaints of Suicide Ideation and Depression 2. Complaints of Abdomen pain, Nausea, Vomiting and Diarrhea- ( No episodes in previous 12 hrs) 3. Alcohol Abuse 249- recheck 142 4. Anemia Hgb 9.8 5. Mild elevation Alk Phos. 158 6. History of Bipolar 7. History of Schizoaffective disorder 8. History of GERD Tele. psych advised need of rapid COVID, to allow placement. 0600 hrs. (DERIAN MCGRAW MD) Dragon Disclaimer: Dragon Disclaimer: This electronic medical record was generated, in whole or in part, using a voice recognition dictation system. (SHAWANDA NICHOLAS DO) Departure Departure: Referrals: PCP,NO (PCP) SHAWANDA NICHOLAS DO Aug 28, 2020 17:14 DERIAN MCGRAW MD Aug 28, 2020 19:04
[2020-08-28 17:41] LABS: CALCIUM 9.1 mg/dL (8.5-10.1); CREATININE 1.1 mg/dL (0.7-1.3); GFR 71.1; POTASSIUM 3.4 mmol/L (3.5-5.1)
--- NOTE | 2020-08-28 17:41 | RAD ---
KUB History: Reason: fecal incontinance / Spl. Instructions: / History: Technique: Supine views of the abdomen. Comparison: CT May 29, 2020 Findings: Mildly dilated air-filled loops of small bowel within the left mid abdomen. Air and stool scattered throughout the imaged colon. Mild colonic stool burden distally. Leftward curvature of the lumbar spine with multilevel spondylosis. Imaged lung bases are unremarkable. Left proximal femur internal fixation. Impression: 1. Mildly dilated air-filled loops of small bowel within the left mid abdomen, may represent ileus or enteritis. Recommend follow-up to exclude developing obstruction. Alternatively, CT can further evaluate. Electronically signed by: Jeremy Rodgers DO (08/28/2020 5:38 PM) [facility]
[2020-08-28 17:46] LABS: ALBUMIN 3.6 g/dL (3.4-5.0); ALBUMIN/GLOBULIN RATIO 0.7 (1.0-1.7); TOTAL BILIRUBIN 0.3 mg/dL (0.2-1.0); TOTAL PROTEIN 9.1 g/dL (6.4-8.2)
[2020-08-28 17:49] LABS: BASO # 0.1 x10^3/uL (0.0-0.2); BASO % 1 % (0-3); EOS # 0.2 x10^3/uL (0.0-0.7); EOS % 2 % (0-3); HEMATOCRIT 31.1 % (39.0-53.0); HEMOGLOBIN 9.8 g/dL (13.0-17.5); LYMPH % 59 % (24-48); MEAN CORPUSCULAR HEMOGLOBIN 25 pg (25-35); MEAN CORPUSCULAR HGB CONC 32 g/dL (31-37); MEAN CORPUSCULAR VOLUME 80 fL (79-100); MONO # 0.6 x10^3/uL (0.0-1.1); MONO % 6 % (0-9); NEUT # 3.3 x10^3uL (1.8-7.7); NEUT % 32 % (31-73); PLATELET COUNT 278 x10^3/uL (140-400); RED BLOOD COUNT 3.87 x10^6/uL (4.30-5.70); RED CELL DISTRIBUTION WIDTH 21.7 % (11.5-14.5); WHITE BLOOD COUNT 10.2 x10^3/uL (4.0-11.0)
[2020-08-28 18:09] LABS: % LYMPHS 45 % (24-48); % MONOS 8 % (0-10); % SEGS 43 % (35-66)
[2020-08-28 18:10] LABS: % EOS 4 % (0-5); PLT ESTIMATE ADEQUATE (ADEQUATE)
[2020-08-28 18:11] LABS: ANISOCYTOSIS MOD; PLATELET CLUMP PRESENT
[2020-08-28] MEDS ORDERED: IOHEXOL 300 MG/ML 75 ML VIAL. IV ONE (19:45)
[2020-08-28] MEDS ORDERED: CONTRAST GIVEN. MC PRN (19:45)
[2020-08-28] MEDS ORDERED: IOHEXOL 240 MG/ML 50ML VIAL. PO ONE (19:45)
[2020-08-28] MEDS ORDERED: MORPHINE SULFATE 10 MG/ML SYRINGE. SQ ONE (20:15)
[2020-08-28 20:31] LABS: BARBITURATES NEG (NEG); BENZODIAZEPINES NEG (NEG); CANNABINOIDS NEG (NEG); COCAINE NEG (NEG); METHADONE NEG (NEG); OPIATES NEG (NEG); PHENCYCLIDINE NEG (NEG)
[2020-08-28 20:35] LABS: AMPHETAMINE/METHAMPHETAMINE NEG (NEG)
[2020-08-28 20:47] LABS: BILIRUBIN,URINE NEG (NEG); CLARITY,URINE CLEAR; COLOR,URINE YELLOW; GLUCOSE,URINE NEG (NEG)
[2020-08-28 20:48] LABS: BACTERIA,URINE 0 /HPF (0-FEW); NITRITE,URINE NEG (NEG); RBC,URINE 0 /HPF (0-2); SQUAMOUS EPITHELIAL CELL,UR OCC /LPF; WBC,URINE 0 /HPF (0-4)
--- NOTE | 2020-08-28 21:24 | RAD ---
Exam: CT of abdomen and pelvis with contrast INDICATION: Abdominal pain TECHNIQUE: Sequential axial images through the abdomen and pelvis obtained following the administration of 75 mL of Omni 300 IV contrast. Sagittal and coronal reformatted images were reconstructed from the axial data and reviewed. Comparisons: None FINDINGS: Heart size is normal. No pericardial effusion. Visualized lung bases are clear. No pleural effusion. Mild diffuse hepatic steatosis. Gallbladder, spleen, pancreas and adrenals are unremarkable. Kidneys demonstrate symmetric enhancement. No perinephric inflammation or hydronephrosis. No renal or ureteral calculi are identified. Bladder is decompressed not well evaluated. Prostate is not enlarged. Large and small bowel are unremarkable. Appendix is nonidentified. No free intra-abdominal air or fluid. No obstruction. Abdominal aorta has a normal course and caliber. Abdominal vasculature is patent. No enlarged intra-abdominal lymph nodes are identified. No suspicious osseous lesions or acute fractures. IMPRESSION: No acute process identified within the abdomen or pelvis. Exposure: One or more of the following in the visualized dose reduction techniques were utilized for this examination: 1. Automated exposure control 2. Adjustment of the MA and/or KV according to patient size 3. Use of iterative of reconstructive technique Electronically signed by: Олег Santos MD (08/28/2020 9:21 PM) [id number]
[2020-08-28] MEDS ORDERED: THIAMINE 200 MG/2 ML VIAL. IV ONE (21:48)
[2020-08-28] MEDS ORDERED: MVI, ADULT NO.4 WITH VIT K 10 ML VIAL IV ONE (21:48)
[2020-08-28] MEDS ORDERED: MVI, ADULT NO.4 WITH VIT K 10 ML, THIAMINE INJ 100 MG in IV RINGERS SOLUTION,LACTATED 1... IV ONE (22:00)
[2020-08-29 05:53] VITALS: BP 153/79
[2020-08-29 11:40] LABS: INFLUENZA A PATIENT NEGATIVE (NEGATIVE); INFLUENZA B PATIENT NEGATIVE (NEGATIVE)
== END 2020-08-29 16:43 | disposition home or self-care (01) ==
LOC: ER 16:36
DX: R45.851 Suicidal ideations (principal); R11.2 Nausea with vomiting, unspecified; R19.7 Diarrhea, unspecified; R10.9 Unspecified abdominal pain; F10.20 Alcohol dependence, uncomplicated; D64.9 Anemia, unspecified; R79.89 Other specified abnormal findings of blood chemistry; F31.9 Bipolar disorder, unspecified; F20.9 Schizophrenia, unspecified; K21.9 Gastro-esophageal reflux disease without esophagitis; F41.9 Anxiety disorder, unspecified; F17.210 Nicotine dependence, cigarettes, uncomplicated; Z20.828 Contact with and (suspected) exposure to other viral communicable diseases; Y90.8 Blood alcohol level of 240 mg/100 ml or more
CPT/HCPCS: 36415; 74018; 74177; 80053; 80307; 81001; 85007; 85025; 87070; 87426; 87804; 87880; 96361; 96365; 96372; 96375; 99285; G0480; J2270; J2405; J7030; J7120; Q9966; Q9967; U0003; C9803

== ENCOUNTER 2020-08-30 16:56 | Emergency (ER) | payer SELFPAY ==
[~2020-08-30] VITALS: Ht 180.3 cm; Wt 70.0 kg
[2020-08-30 20:18] LABS: BASO # 0.1 x10^3/uL (0.0-0.2); BASO % 1 % (0-3); EOS # 0.4 x10^3/uL (0.0-0.7); EOS % 5 % (0-3); HEMATOCRIT 29.2 % (39.0-53.0); HEMOGLOBIN 9.2 g/dL (13.0-17.5); LYMPH # 3.2 x10^3/uL (1.0-4.8); LYMPH % 41 % (24-48); MEAN CORPUSCULAR HEMOGLOBIN 25 pg (25-35); MEAN CORPUSCULAR HGB CONC 32 g/dL (31-37); MEAN CORPUSCULAR VOLUME 80 fL (79-100); MONO # 0.5 x10^3/uL (0.0-1.1); MONO % 7 % (0-9); NEUT # 3.5 x10^3uL (1.8-7.7); NEUT % 46 % (31-73); PLATELET COUNT 163 x10^3/uL (140-400); RED BLOOD COUNT 3.65 x10^6/uL (4.30-5.70); RED CELL DISTRIBUTION WIDTH 21.5 % (11.5-14.5); WHITE BLOOD COUNT 7.6 x10^3/uL (4.0-11.0)
[2020-08-30 20:22] LABS: BARBITURATES NEG (NEG); BENZODIAZEPINES NEG (NEG); CANNABINOIDS NEG (NEG); COCAINE NEG (NEG); METHADONE NEG (NEG); OPIATES NEG (NEG); PHENCYCLIDINE NEG (NEG)
[2020-08-30 20:28] LABS: AMPHETAMINE/METHAMPHETAMINE NEG (NEG)
[2020-08-30 20:29] LABS: ALBUMIN 3.6 g/dL (3.4-5.0); ALBUMIN/GLOBULIN RATIO 0.7 (1.0-1.7); CALCIUM 9.5 mg/dL (8.5-10.1); CREATININE 1.1 mg/dL (0.7-1.3); GFR 71.1; MAGNESIUM 1.9 mg/dL (1.8-2.4); TOTAL BILIRUBIN 0.3 mg/dL (0.2-1.0); TOTAL PROTEIN 8.7 g/dL (6.4-8.2)
[2020-08-30 20:37] LABS: POTASSIUM 2.9 mmol/L (3.5-5.1)
[2020-08-30] MEDS ORDERED: POTASSIUM CHLORIDE 20 MEQ TABLET.ER. PO ONE ×2 (21:15→23:45)
[2020-08-30 21:21] LABS: ANISOCYTOSIS MOD; PLT ESTIMATE ADEQUATE (ADEQUATE)
[2020-08-30] MEDS ORDERED: MVI, ADULT NO.4 WITH VIT K 10 ML, FOLIC ACID INJ 1 MG, THIAMINE INJ 100 MG in IV RINGER... IV ONE (21:30)
[2020-08-30] MEDS ORDERED: KETOROLAC 30 MG/ML VIAL. IVP ONE (22:00)
--- NOTE | 2020-08-30 22:06 | PHYS DOC ---
Past History Past Medical History: Anxiety, Bipolar, Depression, GERD, Schizophrenia, Other Additional Past Medical Histor: ulcer, back pain (LEE SEAMAN APRN) Past Medical History: Alcoholism, Anemia ( ), Bipolar, Depression, GERD, Schizophrenia, Other (DERIAN MCGRAW MD) Past Surgical History: Hip Replacement (LEE SEAMAN APRN) Smoking: Cigarettes Alcohol Use: Heavy Drug Use: None (LEE SEAMAN APRN) Smoking: Cigarettes Alcohol Use: Heavy Drug Use: Marijuana (DERIAN MCGRAW MD) Adult General Chief Complaint Chief Complaint: SUICIDAL IDEATION HPI HPI Patient is a 49 year old male who presents with complaints of back pain, specifically he says his back hurts all over, patient states that his back is hurt all over for several years, patient describes his back pain as this is my chronic pain and I need something for better than Tylenol or Motrin. It was noted by ED nursing staff triage that the patient was suicidal, patient states he is not suicidal, but he would do whatever he needs to do so he does not have to sleep outside anymore. Patient states that of course he is depressed he does not really have a place to stay and he does not have any more money for beer. Patient was asked if he were to commit suicide how would he do it, patient stated he would either walk to the bridge of he can make it that far and jump off or if he found a gun he would use a gun, however he does reiterate that he is currently not suicidal he does want something for his back pain and does not want a sleep outside again. Patient denies any fever chills, states he always has visual changes when he does not drink enough, denies nasal congestion, cou gh, shortness of breath, chest pain, or swelling of his extremities. Patient denies abdominal pain, nausea, vomiting, diarrhea, constipation. Patient denies problems urinating. Patient denies pain in his joints. Patient denies skin rashes, headaches, focal weaknesses or sensory changes. Patient denies any swelling of his glands. Patient denies any recent anxieties, he does state that he has always had depression, patient currently denies suicidal ideation, patient denies homicidal ideation at this time. Patient states that he is a cigarette smoker but cannot afford to buy cigarettes today. Patient denies illicit drug use, patient states that he drinks every day he if he can and when he does not have money he does not drink. (LEE SEAMAN APRN) Review of Systems Review of Systems Constitutional: Denies fever or chills Eyes: Denies change in visual acuity, redness, or eye pain HENT: Denies nasal congestion or sore throat Respiratory: Denies cough or shortness of breath Cardiovascular: No additional information not addressed in HPI GI: Denies abdominal pain, nausea, vomiting, bloody stools or diarrhea : Denies dysuria or hematuria Musculoskeletal: Denies back pain or joint pain Integument: Denies rash or skin lesions Neurologic: Denies headache, focal weakness or sensory changes Psychiatric: Patient denies homicidal or suicidal ideation patient denies recent anxieties, patient does complain of depression, patient states that he gets more depressed if he does not have enough beer to drink. All other systems were reviewed and found to be within normal limits, except as documented in this note. (LEE SEAMAN APRN) Review of Systems Complaints of abdomen pain, Nausea and Vomiting and Diarrhea- ) (DERIAN MCGRAW MD) Current Medications Current Medications Current Medications Medications (Trade) Dose Ordered Sig/Paulette Start Time Stop Time Status Last Admin Dose Admin Ketorolac Tromethamine (Toradol 30mg Vial) 30 mg 1X ONCE 08/30/20 22:00 08/30/20 22:01 Multivitamins/ Minerals 10 ml/ Folic Acid 1 mg/ Thiamine HCl 100 mg/Lactated Ringer's 1,011.3 ml @ 1,011.3 mls/hr 1X ONCE 08/30/20 21:30 08/30/20 22:29 Potassium Chloride (Klor-Con) 40 meq 1X ONCE 08/30/20 21:15 08/30/20 21:16 DC (LEE SEAMAN APRN) Allergies Allergies Allergies Coded Allergies Type Severity Reaction Last Updated Verified No Known Drug Allergies 01/18/15 No (LEE SEAMAN APRN) Physical Exam Physical Exam Constitutional: Well developed, well nourished, no acute distress, non-toxic appearance. Patient disheveled appearance HENT: Normocephalic, atraumatic, bilateral external ears normal, oropharynx moist, no oral exudates, nose normal. Eyes: PERRLA, EOMI, conjunctiva normal, no discharge. Neck: Normal range of motion, no tenderness, supple, no stridor. Cardiovascular:Heart rate regular rhythm, no murmur Lungs & Thorax: Bilateral breath sounds clear to auscultation Abdomen: Bowel sounds normal, soft, no tenderness, no masses, no pulsatile masses. Skin: Warm, dry, no erythema, no rash. Back: No tenderness, no CVA tenderness. Extremities: No tenderness, no cyanosis, no clubbing, ROM intact, no edema. Neurologic: Alert and oriented X 3, normal motor function, normal sensory function, no focal deficits noted. Psychologic: Affect normal, judgement normal, mood normal. Patient does slur his words during examination, patient states that he has not had any alcohol to drink since this morning. (LEE SEAMAN APRN) Current Patient Data Vital Signs Vital Signs Date Time Temp Pulse Resp B/P (MAP) Pulse Ox O2 Delivery O2 Flow Rate FiO2 08/30/20 17:16 98.3 97 18 119/57 (77) 95 Room Air Lab Results Laboratory Tests Test 08/30/20 19:45 White Blood Count 7.6 x10^3/uL (4.0-11.0) Red Blood Count 3.65 x10^6/uL (4.30-5.70) L Hemoglobin 9.2 g/dL (13.0-17.5) L Hematocrit 29.2 % (39.0-53.0) L Mean Corpuscular Volume 80 fL (79-100) Mean Corpuscular Hemoglobin 25 pg (25-35) Mean Corpuscular Hemoglobin Concent 32 g/dL (31-37) Red Cell Distribution Width 21.5 % (11.5-14.5) H Platelet Count 163 x10^3/uL (140-400) Neutrophils (%) (Auto) 46 % (31-73) Lymphocytes (%) (Auto) 41 % (24-48) Monocytes (%) (Auto) 7 % (0-9) Eosinophils (%) (Auto) 5 % (0-3) H Basophils (%) (Auto) 1 % (0-3) Neutrophils # (Auto) 3.5 x10^3uL (1.8-7.7) Lymphocytes # (Auto) 3.2 x10^3/uL (1.0-4.8) Monocytes # (Auto) 0.5 x10^3/uL (0.0-1.1) Eosinophils # (Auto) 0.4 x10^3/uL (0.0-0.7) Basophils # (Auto) 0.1 x10^3/uL (0.0-0.2) Platelet Estimate Adequate (ADEQUATE) Anisocytosis Mod Sodium Level 133 mmol/L (136-145) L Potassium Level 2.9 mmol/L (3.5-5.1) *L Chloride Level 95 mmol/L (98-107) L Carbon Dioxide Level 22 mmol/L (21-32) Anion Gap 16 (6-14) H Blood Urea Nitrogen 9 mg/dL (8-26) Creatinine 1.1 mg/dL (0.7-1.3) Estimated GFR (Cockcroft-Gault) 71.1 BUN/Creatinine Ratio 8 (6-20) Glucose Level 96 mg/dL (70-99) Calcium Level 9.5 mg/dL (8.5-10.1) Magnesium Level 1.9 mg/dL (1.8-2.4) Total Bilirubin 0.3 mg/dL (0.2-1.0) Aspartate Amino Transferase (AST) 35 U/L (15-37) Alanine Aminotransferase (ALT) 21 U/L (16-63) Alkaline Phosphatase 150 U/L (46-116) H Total Protein 8.7 g/dL (6.4-8.2) H Albumin 3.6 g/dL (3.4-5.0) Albumin/Globulin Ratio 0.7 (1.0-1.7) L Urine Opiates Screen Neg (NEG) Urine Methadone Screen Neg (NEG) Urine Barbiturates Neg (NEG) Urine Phencyclidine Screen Neg (NEG) Urine Amphetamine/Methamphetamine Neg (NEG) Urine Benzodiazepines Screen Neg (NEG) Urine Cocaine Screen Neg (NEG) Urine Cannabinoids Screen Neg (NEG) Ethyl Alcohol Level 250 mg/dL (0-10) H Urine Ethyl Alcohol Pos (NEG) (LEE SEAMAN APRN) EKG EKG [] (LEE SEAMAN APRN) EKG My interpretation EKG shows a sinus rhythm at 90 bpm. Slightly prolonged QT interval at 491 ms. No findings of acute STEMI of contralateral changes. (DERIAN MCGRAW MD) Radiology/Procedures Radiology/Procedures [] (LEE SEAMAN APRN) Heart Score Risk Factors: Risk Factors: DM, Current or recent (<one month) smoker, HTN, HLP, family history of CAD, obesity. Risk Scores: Risk Factors: DM, Current or recent (<one month) smoker, HTN, HLP, family history of CAD, obesity. (LEE SEAMAN APRN) HEART Score for Chest Pain: HEART Score for Chest Pain Response (Comments) Value History Slighlty/Non-Suspicious 0 ECG Normal 0 Age >45 - < 65 1 Risk Factors 1 or 2 Risk Factors 1 Troponin < Normal Limit 0 Total 2 Course & Med Decision Making Course & Med Decision Making Pertinent Labs and Imaging studies reviewed. (See chart for details) 49-year-old patient returns emergency department after being evaluated and released today for suicidal ideations and complaints of vomiting and diarrhea for a month. Patient's current complaint is he does not want to sleep outside anymore and he will do whatever he needs to do in order to stay inside. Patient has disheveled appearance, smells of EtOH, when asked patient states he had not drank anything since this morning, patient states he drinks whenever he can get a hold of, patient states he did drink 2 tall beers this morning. The patient did not specifically complain of suicidal ideation to me, however he did make a suicidal statement to the emergency triage nurse. Because of this the patient was placed on a psych watch labs were drawn to satisfy inpatient psychiatry, the patient's blood alcohol level came back at 250, his potassium was 2.9 so a EKG was performed by ED nursing staff at 2046 that showed a normal sinus rhythm without ectopy heart rate of 90 bpm with a MI interval of 0.148, QTc interval of 0.491, no STEMI, no ischemia, no coronary syndrome appreciated, EKG interpreted by ED attending Dr. Mcgraw. The patient was given 40 mEq of potassium p.o. and a banana bag 1 L was started. The alcohol level will be redrawn and when his EtOH level is below 200 a psychiatric auto apprentice mechanic will be consulted. Discussed this patient with Dr. Mcgraw who agreed to assume care. (LEE SEAMAN APRN) Course & Med Decision Making Pt. seen previously on 08/28/2020 for similar complaints. Refuse transfer to [facility]. See Tele. Psych. evail. Impression: 1. Complaints of suicidal ideation and depression 2. Complaints of abdomen pain-complaints of nausea, vomiting and diarrhea ( as prior visit- no episodes in entire visit ) 3. Alcohol abuse 177 4. Anemia 9.2 hemoglobin 5. Mild elevation in alk phos 150 6. History of bipolar 7. Has history of schizoaffective disorder 8. History of alcoholic gastritis and GERD (DERIAN MCGRAW MD) Dragon Disclaimer Dragon Disclaimer This electronic medical record was generated, in whole or in part, using a voice recognition dictation system. (LEE SEAMAN APRN) Departure Departure: Referrals: PCP,NO (PCP) [place] Disclaimer This chart was dictated in whole or in part using Voice Recognition software in a busy, high-work load, and often noisy Emergency Department environment. It may contain unintended and wholly unrecognized errors or omissions. (DERIAN MCGRAW MD) LEE SEAMAN APRN Aug 30, 2020 22:06 DERIAN MCGRAW MD Aug 31, 2020 10:30
[2020-08-30] MEDS ORDERED: MAGNESIUM HYDROXIDE 2,400 MG/30 ML ORAL.SUSP. PO ONE (23:45)
[2020-08-31 04:00] VITALS: BP 142/71
--- NOTE | 2020-08-31 06:42 | EKG ---
[address] [address] Test Date: 2020-08-30 Test Time: 20:47:18 Pat Name: LEE LOUIS Department: Room: Gender: M Presser Automatic: CURRY : 1970 Requested By: LEE SEAMAN Order Number: [id number] Reading MD: Measurements Intervals Heaters Rate: 90 P: 64 CO: 148 QRS: 27 QRSD: 86 T: 52 QT: 398 QTc: 491 Interpretive Statements SINUS RHYTHM PROLONGED QT NO SPECIFIC ECG ABNORMALITIES RI6.02 No previous ECG available for comparison
== END 2020-08-31 04:00 | disposition home or self-care (01) ==
LOC: ER 16:56
DX: R45.851 Suicidal ideations (principal); R10.9 Unspecified abdominal pain; R11.2 Nausea with vomiting, unspecified; R19.7 Diarrhea, unspecified; F10.20 Alcohol dependence, uncomplicated; D64.9 Anemia, unspecified; R79.89 Other specified abnormal findings of blood chemistry; F31.9 Bipolar disorder, unspecified; F20.9 Schizophrenia, unspecified; K21.9 Gastro-esophageal reflux disease without esophagitis; Z86.2 Personal history of diseases of the blood and blood-forming organs and certain disorders involving the immune mechanism; Y90.8 Blood alcohol level of 240 mg/100 ml or more
CPT/HCPCS: 36415; 80053; 80307; 83735; 85025; 93005; 96365; 96366; 96375; 99285; G0480; J1885; J7120; 99284-25